=== PATIENT | female | born 1950 | race Caucasian/White ===

== ENCOUNTER 2024-01-27 12:29 | Emergency (ER) | payer MEDICARE, SELFPAY ==
[2024-01-27 12:30] VITALS: BP 134/72; PULSE 81; RESP 16; TEMP 36.8; O2SAT 95; BMI 40.8
--- NOTE | 2024-01-27 13:10 | CT_ITS ---
STUDY: CT BRAIN WITHOUT CONTRAST REASON FOR EXAM: Female, 73 years old. Trauma RADIATION DOSAGE (If Supplied By Facility): CTDIvol = ( 47.06 ) mGy, DLP = ( 855.03 ) mGycm TECHNIQUE: Transaxial CT imaging of the brain was performed without administration of intravenous contrast material. Individualized dose optimization techniques were used for this CT. COMPARISON: No relevant priors. FINDINGS: Moderate sized scalp hematoma overlying the right frontal bone. Normal calvarium. There is mild cerebral atrophy with widening of the extra-axial spaces and ventricular dilatation. There are areas of decreased attenuation within the white matter tracts of the supratentorial brain, consistent with microvascular disease changes. Normal basal ganglia and thalami. Normal brainstem. Normal cerebellum. There is no intracranial hemorrhage. There are no findings of an acute ischemic infarction. Atherosclerotic calcification of the cavernous portions of the internal carotid arteries bilaterally. Normal visualized paranasal sinuses. CT/Brain/Head without Contrast IMPRESSION: Chronic involutional changes of the brain. Moderate sized right frontal scalp hematoma. Electronically Signed: Damián Shepherd MD at 13:47 EDT ,
--- NOTE | 2024-01-27 13:10 | CT_ITS ---
STUDY: CT CERVICAL SPINE WITHOUT CONTRAST REASON FOR EXAM: Female, 73 years old. Trauma due to a fall. RADIATION DOSAGE (If Supplied By Facility): CTDIvol = ( 18.97 ) mGy, DLP = ( 275.29 ) mGycm TECHNIQUE: High resolution transaxial imaging was performed without contrast material. Sagittal and coronal images were reconstructed. Individualized dose optimization techniques were used for this CT. COMPARISON: None FINDINGS: Normal craniovertebral junction. There are degenerative changes of the anterior atlantoaxial articulation. There is evidence of a fracture through the midportion of the dens. There is reversal of the normal cervical lordosis. Is evidence of prior fusion at the C3-C4 C4-C5 as well as C5-C6 and C6-C7 levels. Multilevel disc space narrowing and spondylosis. Normal visualized soft tissue structures. CT/Spine Cervical without Contras IMPRESSION: Nondisplaced fracture through the midportion of the dens. Multilevel disc space narrowing and spondylosis. Status post C3-C4, C4-C5 and C5-C6 level interpedicular screw and dania fixation. N.B. : The above Results were Read Back by Damián Shepherd MD to Maynor Rose DO, and understanding confirmed on 01/27/2024 13:44:21 (ET). Electronically Signed: Damián Shepherd MD at 13:45 EDT ,
--- NOTE | 2024-01-27 13:26 | ED.VIS.FALL ---
HPI HPI - Fall History of Present Illness Chief Complaint: Fall Informant: patient and EMS Narrative Narrative: 73-year-old female presenting to the emergency room following a fall. Patient was on her way into the [facility] for x-rays when she tripped and fell striking her head on the concrete. No reported loss of consciousness. EMS notes laceration to the forehead and the nose. Patient denies any arm or leg symptoms. She notes neck pain. She notes having had prior multilevel cervical fusion by Dr. Mily Pinto at [facility]. She states the c-collar is very uncomfortable for her. PFSH PFS Medical History Gout Depression GERD (gastroesophageal reflux disease) Hypercholesteremia Hypothyroid Kidney disease, chronic, stage IV (GFR 15-29 ml/min) CHF (congestive heart failure) Medical History unable to obtain Allergy/AdvReac Type Severity Reaction Status Date / Time acetaminophen (From [place]) AdvReac Intermediate Itching Verified 01/27/24 12:30 hydrocodone (From [place]) AdvReac Intermediate Itching Verified 01/27/24 12:30 Surgical History H/O cervical spinal arthrodesis Social History Smoking Status: Former smoker ROS ROS ED Constitutional Constitutional ED: Denies chills or weight loss Eyes Eyes: Denies blurry vision, change in vision or diplopia ENT ENT ED: Denies ear pain, rhinorrhea or sore throat Cardiovascular Cardiovascular: Denies chest pain, orthopnea, palpitations or racing heartbeat Respiratory/Chest Respiratory/Chest: Denies cough, dyspnea or orthopnea Gastrointestinal Gastrointestinal: Denies abdominal pain, diarrhea, nausea or vomiting Genitourinary Genitourinary ED: Denies dysuria, hematuria or urinary frequency Musculoskeletal Musculoskeletal: Denies arthralgias or myalgias Integumentary Reports other Details: Facial lacerations and abrasions ; Denies abscess or rash Neurologic Neurologic: Denies headache(s) or weakness Psychiatric Psychiatric: Denies anxiety, depression, suicidal ideation or suicidal thoughts Endocrine Endocrinology: Denies polydipsia, polyphagia or polyuria Allergic/Immunologic Allergic/Immunologic ED: Denies mouth swelling, tongue swelling or urticaria EXAM Physical Exam Const Vital Signs: 01/27/24 12:30 01/27/24 12:50 Temperature 98.2 F Temperature Source Oral Pulse Rate 81 Respiratory Rate 16 Respiratory Effort Normal Respiratory Depth Normal Respiratory Pattern Normal Blood Pressure 134/72 H Blood Pressure Mean 92 Pulse Ox 95 Oxygen Delivery Method Room Air Room Air Positive well nourished and well developed General Appearance ED: well developed HEENT Reports normocephalic and moist mucous membranes HEENT Narrative: There is a 7 cm L-shaped laceration of the left forehead with active bleeding. There is concomitant hematoma of the subcutaneous tissue. Just superior to this is a superficial area of road rash. Over the bridge of the nose patient has skin avulsion with no active bleeding. There is no septal hematoma. Patient is able to wrinkle her forehead. There are no palpable bony step-offs. Extraocular motions are intact. Midface is stable. Eyes PERRL and EOMs intact bilaterally Neck no lymphadenopathy, supple and no JVD Neck Narrative: C-collar in place Resp normal respiratory effort and clear to auscultation bilaterally Cardio regular rate, regular rhythm and no murmurs GI normal to inspection, nondistended, normoactive bowel sounds and non-tender Palpation: soft Back/Spine no CVA tenderness and normal ROM Extremity normal to inspection General Extremety ED: Negative for edema General Extremity: Negative for edema Neuro oriented x3 and CN's II-XII intact bilaterally Sensorium / Orientation: alert Motor Exam: strength 5/5 throughout Psych mental status grossly normal Mood & Affect: Negative for depressed or tearful Skin no rashes or lesions noted and no wounds MDM MDM MDM Narrative Medical decision making narrative: Differential diagnosis includes but not limited to skull fracture intracranial hemorrhage cervical spine fracture cervical myofascial strain disc herniation facial lacerations facial fracture septal hematoma retained foreign bodies Because the patient was actively bleeding despite direct pressure during my initial examination I elected to immediately proceed with suturing. Wound was locally anesthetized using 1% lidocaine. Wound was washed with Shur-Clens sterile saline and explored. No obvious foreign bodies were noted. Wound was closed using 5-0 Ethilon simple interrupted sutures. Homeostasis was achieved. Ice pack was applied. CT of the brain and cervical spine was obtained. This demonstrates no intracranial hemorrhage. A C2 type II dens fracture was noted. Patient has remained in a C-spine collar. She received pain and nausea medicine. Spoke with the patient and again she is seeing Dr. Benitez is seen by [facility] in the past. Patient is agreeable to transfer to [facility] for further trauma care. History & Record Review Discussion w/independent historian: EMS personnel and Patient Lab Data Attestation: I reviewed the patient's lab results. Radiography Diagnostic Testing: Clinical Impression(s) from Imaging Studies Brain CT 01/27/24 13:10 IMPRESSION: Chronic involutional changes of the brain. Moderate sized right frontal scalp hematoma. Electronically Signed: Damián Shepherd MD at 13:47 EDT , Cervical Spine CT 01/27/24 13:10 IMPRESSION: Nondisplaced fracture through the midportion of the dens. Multilevel disc space narrowing and spondylosis. Status post C3-C4, C4-C5 and C5-C6 level interpedicular screw and dania fixation. N.B. : The above Results were Read Back by Damián Shepherd MD to Maynor Rose DO, and understanding confirmed on 01/27/2024 13:44:21 (ET). Electronically Signed: Damián Shepherd MD at 13:45 EDT , ADDENDUM: 01/27/24 1352 IMPRESSION: Nondisplaced fracture through the midportion of the dens. Multilevel disc space narrowing and spondylosis. Status post C3-C4, C4-C5 and C5-C6 level interpedicular screw and dania fixation. N.B. : The above Results were Read Back by Damián Shepherd MD to Maynor Rose DO, and understanding confirmed on 01/27/2024 13:44:21 (ET). Electronically Signed: Damián Shepherd MD at 13:45 EDT , ADDENDUM: 01/27/24 1404 IMPRESSION: undefined Management Discussion w/another healthcare provider: Paleontological Helper (Trauma [facility]) and Radiologist Discharge Plan Triage Chief Complaint: Fall ED Provider: Maynor Rose Dx/Rx/DC Orders Clinical Impression: Fall, C2 cervical fracture, Face lacerations Primary Care Provider: Yenni Grimm Referrals: Yenni Grimm, [Primary Care Provider] - Print Language: Moldovan Disposition Disposition: Acute Care Hospital Discharge Location: [facility]
--- NOTE | 2024-01-27 14:26 | NURSING ---
CALLED [facility], ETA IS 90 TO 120
[2024-01-27 15:46] VITALS: BP 137/89; PULSE 70; RESP 16; TEMP 36.3; O2SAT 93
== END 2024-01-27 15:59 | disposition short-term general hospital (02) ==
PROVIDERS: Emergency Provider Emergency Medicine; PCP Family Medicine; Visit Provider Emergency Medicine
DX: S01.81XA Laceration without foreign body of other part of head, initial encounter (principal); S12.101A Unspecified nondisplaced fracture of second cervical vertebra, initial encounter for closed fracture; N18.4 Chronic kidney disease, stage 4 (severe); I50.9 Heart failure, unspecified; E78.00 Pure hypercholesterolemia, unspecified; Z87.891 Personal history of nicotine dependence; W01.198A Fall on same level from slipping, tripping and stumbling with subsequent striking against other object, initial encounter; Y93.01 Activity, walking, marching and hiking; Y92.531 Health care provider office as the place of occurrence of the external cause
CPT/HCPCS: 12014; 70450; 72125; 96374; 96375; 96376; 99284; A4216; J2405